=== PATIENT | male | born 1990 | race Two or more races ===

== ENCOUNTER 2021-04-20 16:33 | Emergency (ER) | payer MEDICAID ==
[~2021-04-20] VITALS: Ht 180.3 cm; Wt 70.3 kg
[2021-04-20 16:56] VITALS: BP 150/91
[2021-04-20] MEDS ORDERED: IBUP800T27 PO (18:00)
== END 2021-04-20 18:06 | disposition home or self-care (01) ==
LOC: ER 16:36
DX: D16.4 Benign neoplasm of bones of skull and face (principal)
CPT/HCPCS: 70450

== ENCOUNTER 2021-08-21 17:05 | Emergency (ER) | payer MEDICAID ==
[~2021-08-21] VITALS: Ht 180.3 cm; Wt 74.4 kg
[~2021-08-21 17:05] MED LIST: IBUP800T27 PO
[2021-08-21 18:06] LABS: Urine Bacteria NONE SEEN /hpf (None Seen); Urine Blood Negative /uL (Negative); Urine Specific Gravity 1.008 (1.001-1.035); Urine WBC <1 /hpf (0 - 3)
[2021-08-21 19:44] LABS: Basophils # (auto) 0.1 10 ^3/uL (0-0.2); Basophils % (auto) 1.2 % (0.0-2.0); Eosinophils # (auto) 0.2 10 ^3/uL (0-0.8); Eosinophils % (auto) 1.8 % (0.0-7.0); Hemoglobin 14.6 g/dL (13.5-17.5); Lymphocytes # (auto) 2.8 10 ^3/uL (0.4-5.4); Lymphocytes % (auto) 33.9 % (10.0-50.0); Mean Corpuscular Hemoglobin 29.5 pg (28.0-32.0); Mean Corpuscular Hgb Conc. 33.1 g/dL (32.0-36.0); Mean Corpuscular Volume 89.3 fL (80.0-100.0); Monocytes # (auto) 0.8 10 ^3/uL (0-1.3); Monocytes % (auto) 9.7 % (0.0-12.0); Neutrophils # (auto) 4.4 10 ^3/uL (1.6-8.6); Neutrophils % (auto) 53.4 % (37.0-80.0); Red Blood Cells 4.93 10^6/uL (4.5-5.90); Red Cell Distribution Width 13.6 % (11.8-14.3); White Blood Cell 8.3 10^3/uL (4.4-10.8)
[2021-08-21 20:03] LABS: BUN/Creatinine Ratio 12.8; Calcium 8.6 mg/dL (8.5-10.1); Potassium 4.2 mmol/L (3.5-5.1)
[2021-08-21 20:05] LABS: Bilirubin, Total 0.5 mg/dL (0.2-1.0); Total Protein 7.1 g/dL (6.4-8.2)
[2021-08-21 22:10] VITALS: BP 107/66
== END 2021-08-21 22:40 | disposition home or self-care (01) ==
LOC: ER 17:05
DX: K40.90 Unilateral inguinal hernia, without obstruction or gangrene, not specified as recurrent (principal)
CPT/HCPCS: 36415; 74176; 80053; 81001; 85025

== ENCOUNTER 2022-04-10 02:36 | Emergency (ER) | payer OTHER, MEDICAID ==
[~2022-04-10] VITALS: Ht 180.3 cm; Wt 81.6 kg
[2022-04-10] MEDS ORDERED: KETOROLAC TROMETH 60MG/2ML VIAL IM ONE (04:30)
[2022-04-10] MEDS ORDERED: CEPH-510 PO (04:31)
[2022-04-10] MEDS ORDERED: IBUP800T26 PO (04:31)
[2022-04-10 04:50] VITALS: BP 131/57
== END 2022-04-10 05:11 | disposition home or self-care (01) ==
LOC: ER 02:36
DX: L03.115 Cellulitis of right lower limb (principal); L84 Corns and callosities
CPT/HCPCS: 96372; 99283; J1885